=== PATIENT | female | born 1985 | race Caucasian/White ===

== ENCOUNTER → 2019-01-13 13:24 | Outpatient (CLI) | payer OTHER, SELFPAY ==
--- NOTE | 2019-01-13 | DI.RAD.S_ITS ---
PROCEDURE: XR FOOT RT MIN 3V INDICATIONS: Right foot pain TECHNIQUE: 3 views of the foot were acquired. COMPARISON: None. FINDINGS: Bones: No fractures or dislocations. No suspicious bony lesions. Soft tissues: No tibiotalar joint effusion. Achilles tendon appears normal. IMPRESSION: No trauma found. Small accessory ossicle lateral to the cuboid bone. Dictated by: Mohan Armendariz M.D. on 01/13/2019 at 14:30 Approved by: Mohan Armendariz M.D. on 01/13/2019 at 14:31
== END ==
PROVIDERS: Family Provider Family Medicine; PCP Family Medicine; Visit Provider Family Medicine
DX: M79.671 Pain in right foot (principal)
CPT/HCPCS: 73630

== ENCOUNTER → 2023-01-06 13:35 | Outpatient (CLI) | payer OTHER, SELFPAY ==
--- NOTE | 2023-01-06 | DI.US.S_ITS ---
LIMITED ULTRASOUND OF RIGHT BREAST: 01/06/2023 CLINICAL: Palpable right breast lump. Comparison is made to exam dated: 01/06/2023 mammogram - [facility]. Color flow and real-time ultrasound of the right breast 11-12 o'clock region were performed. Call scale images of the real-time examination were reviewed. There is a 0.7 cm x 0.4 cm x 0.4 cm oval cyst in the right breast at 11 o'clock anterior depth 3 cm from the nipple. This oval cyst is anechoic and hypoechoic. This correlates as an incidental finding. Color flow imaging demonstrates that there is no vascularity present. There also is a benign 1.4 cm simple cyst in the right breast at 11 o'clock anterior depth. No cyst or mass is seen at the site of reported palpable abnormality. IMPRESSION: PROBABLY BENIGN The 0.7 cm oval cyst in the right breast at 11 o'clock anterior depth is consistent with a complicated cyst and is probably benign. -A follow-up ultrasound in 6 months is recommended to demonstrate stability. The 1.4 cm simple cyst in the right breast at 11 o'clock anterior depth is benign. Exam findings were conveyed to the patient. Patient is advised to monitor for significant change. Clinical follow-up as needed. This exam was interpreted at Station ID: [id number]. Electronically Signed By: Raul Larios M.D. slc/:01/06/2023 14:52:22 letter sent: Followup Recommended Ultrasound BI-RADS: 3 Probably benign
--- NOTE | 2023-01-06 | DI.MG.S_ITS ---
BILATERAL DIGITAL DIAGNOSTIC MAMMOGRAM 3D/2D WITH AUGMENTATION: 01/06/2023 CLINICAL: Right breast lump. Baseline. Baseline exam. No prior exams were available for comparison. Both breasts are extremely dense, which lowers the sensitivity of mammography (category d />75% glandular tissue). No significant masses, calcifications, or other findings are seen in either breast. IMPRESSION: INCOMPLETE: NEEDS ADDITIONAL IMAGING EVALUATION No mammographic evidence of malignancy. A targeted ultrasound is recommended and will immediately follow. Based on the Tyrer Cuzick model (a risk assessment model) the patient's lifetime risk is 12.1% and her 10 year risk is 1.4%. According to the ACR, ACS, and NCCN guidelines, an annual breast MRI exam along with mammogram is recommended if the patient's lifetime risk is 20% or greater. This exam was interpreted at Station ID: [id number]. NOTE: For mammograms, a report in lay terms will be sent to the patient. Approximately 15% of breast malignancies will not be visualized mammographically. In the management of a palpable breast mass, a negative mammogram must not discourage biopsy of a clinically suspicious lesion. Electronically Signed By: Raul Larios M.D. slc/:01/06/2023 14:17:39 ACR BI-RADS Category 0: Incomplete 3340F
== END ==
PROVIDERS: Family Provider Family Medicine; PCP Family Medicine; Referring Provider Registered Nurse; Visit Provider Registered Nurse
DX: R92.2 Inconclusive mammogram; N60.01 Solitary cyst of right breast
CPT/HCPCS: 76642; 77066; G0279

== ENCOUNTER → 2023-08-18 08:25 | Outpatient (CLI) | payer OTHER, SELFPAY ==
--- NOTE | 2023-08-18 | DI.US.S_ITS ---
LIMITED ULTRASOUND OF RIGHT BREAST: 08/18/2023 CLINICAL: Patient returns today to evaluate an asymmetry in the right breast. Comparison is made to exams dated: 01/06/2023 ultrasound and 01/06/2023 mammogram - [facility]. Color flow and real-time ultrasound of the right breast 11 o'clock region were performed. Call scale images of the real-time examination were reviewed. There is a stable 0.6 cm x 0.5 cm x 0.4 cm oval complicated cyst in the right breast at 11 o'clock anterior depth 3 cm from the nipple. This oval complicated cyst is anechoic and hypoechoic. This correlates as an incidental finding. Color flow imaging demonstrates that there is no vascularity present. There also is a stable 0.8 cm x 0.5 cm x 0.3 cm oval complicated cyst in the right breast at 11 o'clock middle depth 4 cm from the nipple. This oval complicated cyst is anechoic with internal echoes. This correlates with mammography findings. Color flow imaging demonstrates that there is no increase in vascularity. Additionally, there is a benign 0.9 cm oval simple cyst in the right breast at 11 o'clock anterior depth 2 cm from the nipple. IMPRESSION: PROBABLY BENIGN The stable 0.6 cm x 0.5 cm x 0.4 cm oval complicated cyst in the right breast at 11 o'clock anterior depth is probably benign. The stable 0.8 cm x 0.5 cm x 0.3 cm oval complicated cyst in the right breast at 11 o'clock middle depth is probably benign. The 0.9 cm oval simple cyst in the right breast at 11 o'clock anterior depth is benign. A follow-up ultrasound in 6 months is recommended to demonstrate stability. Patient will be due for mammogram at that time. Exam findings were conveyed to the patient. This exam was interpreted at Station ID: [id number]. Electronically Signed By: Raul Larios M.D. slc/:08/18/2023 10:52:00 letter sent: Followup Recommended Ultrasound BI-RADS: 3 Probably benign
== END ==
PROVIDERS: Family Provider Family Medicine; PCP Family Medicine; Referring Provider Family Medicine; Visit Provider Family Medicine
DX: N63.10 Unspecified lump in the right breast, unspecified quadrant (principal); N60.01 Solitary cyst of right breast
CPT/HCPCS: 76642

== ENCOUNTER → 2024-06-08 08:45 | Outpatient (CLI) | payer OTHER, BC, SELFPAY ==
--- NOTE | 2024-06-08 | DI.MG.S_ITS ---
BILATERAL DIGITAL DIAGNOSTIC MAMMOGRAM 3D/2D SHORT-TERM FOLLOW-UP WITH AUGMENTATION: 06/08/2024 CLINICAL: Short term follow up of the right breast, due for bilateral imaging. Comparison is made to exam dated: 01/06/2023 mammogram - [facility]. Both breasts are extremely dense, which lowers the sensitivity of mammography (category d />75% glandular tissue). No significant masses, calcifications, or other findings are seen in either breast. Implants are present and intact. Mammograms are stable. IMPRESSION: INCOMPLETE: NEEDS ADDITIONAL IMAGING EVALUATION Bilateral mammograms are stable. Ultrasound is recommended to document stability of previously seen ultrasound-only finding. This was performed immediately following this exam. Based on the Tyrer Cuzick model (a risk assessment model) the patient's lifetime risk is 18.2% and her 10 year risk is 2.4%. According to the ACR, ACS, and NCCN guidelines, an annual breast MRI exam along with mammogram is recommended if the patient's lifetime risk is 20% or greater. This exam was interpreted at Station ID: [id number]. NOTE: For mammograms, a report in lay terms will be sent to the patient. Approximately 15% of breast malignancies will not be visualized mammographically. In the management of a palpable breast mass, a negative mammogram must not discourage biopsy of a clinically suspicious lesion. Electronically Signed By: Hazel ramirez/:06/08/2024 09:45:50 ACR BI-RADS Category 0: Incomplete 3340F
--- NOTE | 2024-06-08 08:49 | DI.US.S_ITS ---
LIMITED ULTRASOUND OF RIGHT BREAST: 06/08/2024 CLINICAL: 6 month follow-up of cysts. Comparison is made to exams dated: 06/08/2024 mammogram, 08/18/2023 ultrasound, 01/06/2023 ultrasound, and 01/06/2023 mammogram - [facility]. Real-time ultrasound of the right breast 11 o'clock region was performed. Call scale images of the real-time examination were reviewed. There is a 0.4 cm x 0.4 cm x 0.3 cm round complicated cyst in the right breast at 11 o'clock middle depth 4 cm from the nipple. This round complicated cyst is hypoechoic with internal echoes. This abnormality is decreased in size. Color flow imaging demonstrates that there is no increase in vascularity. There also is a stable 0.8 cm x 0.5 cm x 0.6 cm oval simple cyst in the right breast at 11 o'clock anterior depth 3 cm from the nipple. This oval simple cyst is anechoic. Color flow imaging demonstrates that there is no vascularity present. IMPRESSION: PROBABLY BENIGN The 0.4 cm x 0.4 cm x 0.3 cm round complicated cyst in the right breast at 11 o'clock middle depth is probably benign. The stable 0.8 cm x 0.5 cm x 0.6 cm oval simple cyst in the right breast at 11 o'clock anterior depth is benign. A follow-up right ultrasound in 6 months is recommended to demonstrate stability. Findings and recommendations were conveyed to the patient at time of exam. This exam was interpreted at Station ID: [id number]. Electronically Signed By: Hazel ramirez/:06/08/2024 11:27:59 letter sent: Followup Recommended Ultrasound BI-RADS: 3 Probably benign
== END ==
PROVIDERS: Family Provider Family Medicine; PCP Family Medicine; Referring Provider Family Medicine; Visit Provider Family Medicine
DX: R92.2 Inconclusive mammogram (principal); N63.10 Unspecified lump in the right breast, unspecified quadrant; N60.01 Solitary cyst of right breast; R92.343 Mammographic extreme density, bilateral breasts
CPT/HCPCS: 76642; 77066; G0279

== ENCOUNTER 2025-02-22 23:21 | Emergency (ER) | payer OTHER, BC, SELFPAY ==
--- NOTE | 2025-02-22 23:24 | ED.GENADULT ---
HPI - General Adult General Chief complaint: Extremity Injury, Lower Stated complaint: blot clot/left leg Time Seen by Provider: 02/22/25 23:23 History of Present Illness HPI narrative: Otherwise healthy 39-year-old woman concerned with blood clot in her left leg. She is not currently on any hormones, she has been having some pain behind her left knee and into the upper calf. Has not noticed significant swelling. She just flew to [place] and back and the pain behind the knee is worse. She is not having any shortness of breath, tachycardia, chest pain. No other complaints at this time Related Data Home Medications Medication Instructions Recorded Confirmed No Known Home Medications 12/15/19 12/15/19 Allergies Allergy/AdvReac Type Severity Reaction Status Date / Time No Known Drug Allergies Allergy Unverified 12/15/19 15:40 Review of Systems Review of Systems Narrative: Pertinent positive and negative findings as per HPI Patient History Medical History (Updated 02/23/25 @ 00:28 by Luly Marie MD) History of abnormal cervical Pap smear Vaginal delivery Surgical History History of breast augmentation History of third molar tooth extraction Exam Initial Vital Signs Initial Vital Signs: Vital Signs Temperature 97.7 F 02/22/25 23:30 Pulse Rate 78 02/22/25 23:30 Respiratory Rate 16 02/22/25 23:30 Blood Pressure 134/76 02/22/25 23:30 Pulse Oximetry 100 02/22/25 23:30 Oxygen Delivery Method Room Air 02/22/25 23:30 General: Alert appropriate in no acute distress Respiratory: Able to speak in full sentences, no obvious respiratory distress Skin: No obvious rashes, warm and dry Neurologic: Grossly intact no obvious asymmetries or abnormalities Psych: appropriate insight and affect, cooperative Extremity: Right calf is actually slightly more swollen than the left. Left has some tenderness in the popliteal fossa without obvious popliteal cyst appreciated. Some tenderness in the proximal portion of the gastroc. Negative Homans sign. Good peripheral pulses and perfusion overall Course Orders Ordered: ED Orders 02/22/25 23:27 US perip venous low extrem lt Stat Vital Signs Vital signs: Vital Signs - 8 hr 02/22/25 23:30 Temperature 97.7 F Pulse Rate 78 Respiratory Rate 16 Blood Pressure 134/76 Pulse Oximetry 100 Oxygen Delivery Method Room Air Medical Decision Making [facility] Narrative Medical decision making narrative: 39-year-old woman with pain behind her left knee and into the upper calf concern for DVT. Recently returned from a trip to [place] with two cross-country flights within a couple of days' time. No secondary symptoms or signs of pulmonary embolism. She has never had blood clots before. Ultrasound shows no evidence of DVT, popliteal cyst or obvious muscle tear. The area of concern was a small perforating vein without clot. Patient is reassured. There is no indication for additional workup or hospitalization at this time and she is safe for discharge Discharge Plan Departure Patient Disposition: Home Clinical Impression: Pain of left calf Activity Restrictions/Additional Instructions: Thank you for coming in today Your ultrasound does not show a blood clot, a popliteal cyst(a common finding in the back of your knee) a torn muscle or any other abnormality that might explain why you are having tenderness into that calf If you find that you are getting worse or develop any new symptoms, please feel free to return to the emergency department for further evaluation. Prescriptions: No Action No Known Home Medications Referrals: Julian Guan MD [Primary Care Provider] - Stand Alone Forms: Patient Portal/API/Survey
--- NOTE | 2025-02-22 23:27 | DI.US.S_ITS ---
PROCEDURE: US PERIPH VENOUS LOW EXTREM LT INDICATIONS: Pain behind the knee upper calf, just flew to [place] TECHNIQUE: Real-time imaging, as well as color and pulse Doppler interrogation, were performed of the lower extremity deep veins from the inguinal ligament to the popliteal fossa, with documentation of the visualized calf veins. COMPARISON: None. FINDINGS: The common femoral, femoral, popliteal, and the visualized calf veins are normally compressible, and free of intraluminal thrombus. Color and pulse Doppler demonstrate normal phasic intraluminal flow. There is normal augmentation response to distal compression maneuver. IMPRESSION: No findings of lower extremity deep venous thrombosis. Dictated by: Devonte Ramos M.D. on 02/23/2025 at 0:37 Approved by: Devonte Ramos M.D. on 02/23/2025 at 0:37
[2025-02-22 23:30] VITALS: BP 134/76; PULSE 78; RESP 16; TEMP 36.5; O2SAT 100; BMI 32.1
[2025-02-23 00:32] VITALS: BP 119/64; PULSE 65; RESP 18; O2SAT 99
== END 2025-02-23 00:33 | disposition home or self-care (01) ==
PROVIDERS: Emergency Provider Emergency Medicine; Family Provider Family Medicine; PCP Family Medicine
DX: M79.605 Pain in left leg (principal)
CPT/HCPCS: 93971; 99281; 99283

== ENCOUNTER → 2025-03-26 10:30 | Outpatient (CLI) | payer OTHER, BC, SELFPAY ==
[2025-03-26 11:24] LABS: Add Manual Diff / Slide Review NO; Basophils Absolute Auto 0 /uL (0-100); Basophils Percent Auto 0.5 % (0-2); Eosinophils Absolute Auto 200 /uL (0-450); Eosinophils Percent Auto 2.7 % (2-4); Hematocrit 43.2 % (36-46); Hemoglobin 14.3 g/dL (12.0-16.0); Lymphocytes Absolute Auto 3300 /uL (1100-4500); Lymphocytes Percent Auto 37.8 % (25-40); Mean Corpuscular HGB Conc 33.1 % (30-36); Mean Corpuscular Hemoglobin 24.2 PG (26-34); Monocytes Absolute Auto 600 /uL (0-900); Monocytes Percent Auto 6.6 % (3-14); Neutrophils Absolute Auto 4500 /uL (1500-7000); Neutrophils Percent Auto 52.4 % (50-75); Platelet Count 302 X10^3/uL (150-400); Red Blood Cell Count 5.92 X10^6/uL (4.0-5.2); Red Cell Distribution Width 15.2 % (11.6-14.8); White Blood Cell Count 8.6 X10^3/uL (4.5-11.0)
== END ==
PROVIDERS: Family Provider Family Medicine; PCP Family Medicine; Referring Provider Dermatology; Visit Provider Dermatology
DX: L30.9 Dermatitis, unspecified (principal)
CPT/HCPCS: 85025; 86038

== ENCOUNTER → 2025-06-12 10:50 | Outpatient (CLI) | payer OTHER, BC, SELFPAY ==
--- NOTE | 2025-06-12 10:52 | DI.RAD.S_ITS ---
PROCEDURE: XR KNEE RT 3V INDICATIONS: Pain in right knee TECHNIQUE: 3 views of the knee were acquired. COMPARISON: None. FINDINGS: Bones: There are no osseous abnormalities. Joints: Moderate right tibial femoral and mild right patellofemoral degeneration noted. No effusion. Moderate degeneration left medial tibial femoral joint Soft tissues: Normal IMPRESSION: Bilateral degeneration Dictated by: Nav Odom M.D. on 06/13/2025 at 10:21 Approved by: Nav Odom M.D. on 06/13/2025 at 10:22
== END ==
PROVIDERS: Family Provider Family Medicine; PCP Family Medicine; Referring Provider Family Medicine; Visit Provider Family Medicine
DX: M17.0 Bilateral primary osteoarthritis of knee (principal); M25.561 Pain in right knee
CPT/HCPCS: 73562